=== PATIENT | female | born 1950 | race Caucasian/White ===

== ENCOUNTER → 2017-01-17 | Outpatient (CLI) | payer BC ==
--- NOTE | ~2017-01-17 | XA30 ---
[facility] A Service of [facility] RADIOLOGY TEXT RESULTS PATIENT: WILI ELIZABETH LOCATION: [facility] : 54 UNIT #: [id number] AGE: [address]: Monster Fischer MD SEX: F ORDER DR: [id number] [facility]. [place], [place] [address] [id number] O MR#: [id number] Acc #: [id number] NAME: WILI ELIZABETH : 1950 SEX: F STUDY DATE/TIME: 01/17/2017 11:16 UNIT: [facility] ROOM: STUDY DESCRIPTION: XA Arthrocentesis Major Joint Attending Physician: Monster Fischer M.D. Ordering Physician: Monster Fischer M.D. Primary Care Physician: Michell Ortiz A.P.R.N. MEDICAL IMAGING REPORT This report is preliminary unless electronic signature is present EXAM Fluoroscopically-guided right hip joint injection INDICATION 66-year-old female with right hip pain. FLUORO TIME 0.3 minutes. One fluoroscopic image was taken. TECHNIQUE/FINDINGS Risks, benefits, and alternatives of the procedure were discussed with the patient. Informed consent was obtained. In the procedure room, a time-out was performed confirming correct patient and procedure. All elements of maximal sterile barrier technique utilized according to guidelines appropriate for the procedure. Skin overlying the right hip was prepped and draped in the usual sterile fashion. 1% lidocaine utilized to anesthetize the skin and underlying subcutaneous tissues. Next under fluoroscopic guidance, a 22-gauge needle was advanced into the hip joint space. A small amount of contrast was injected confirming satisfactory positioning. Next 2 mL of 40 mg per mL Depo-Medrol followed by 3 mL of Bupivacaine were injected into the hip joint space. Needle was removed and a sterile dressing was applied. Patient tolerated procedure well without immediate complications. Preprocedure pain 5, postprocedure pain 0. IMPRESSION Technically successful fluoroscopic guided right hip joint injection with sterile local anesthetic. [facility] A Service of [facility] RADIOLOGY TEXT RESULTS PATIENT: WILI ELIZABETH LOCATION: [facility] #: [id number] : 54 UNIT #: [id number] AGE: [address]: Monster Fischer MD SEX: F ORDER DR: Dictated by... Gray Gilbert M.D. THIS IS AN ELECTRONICALLY VERIFIED REPORT Gray Gilbert M.D. at 01/19/2017 12:25 PM [place]/morgan TD: 01/18/2017 09:13 JOB #: [id number] MEDICAL IMAGING REPORT Page 1 of 1 COPY
== END | disposition home or self-care (01) ==
LOC: CIVR 11:00
PROC: 3E0U3BZ Introduction of Anesthetic Agent into Joints, Percutaneous Approach (ICD-10-PCS; principal; 2017-01-17)
DX: M25.551 Pain in right hip (principal); M19.90 Unspecified osteoarthritis, unspecified site
CPT/HCPCS: 77002; J1030; Q9966